=== PATIENT | female | born 1975 | race Caucasian/White ===

== ENCOUNTER 2016-11-26 11:12 | Outpatient (CLI) | payer OTHER | END 2016-11-26 20:31 | disposition home or self-care (01) | LOC: MLB 11:12 | PROVIDERS: ATTEND Family Medicine | DX: E78.5 Hyperlipidemia, unspecified (principal); M32.9 Systemic lupus erythematosus, unspecified; G89.29 Other chronic pain; M79.7 Fibromyalgia; K92.1 Melena; Z11.1 Encounter for screening for respiratory tuberculosis; Z11.59 Encounter for screening for other viral diseases; Z86.19 Personal history of other infectious and parasitic diseases; Z13.828 Encounter for screening for other musculoskeletal disorder; Z87.898 Personal history of other specified conditions ==

== ENCOUNTER 2016-12-05 11:37 | Outpatient (CLI) | payer OTHER ==
[2016-12-06 09:11] LABS: T4 (THYROXINE) 9.2 ug/dL (4.5-12.0)
== END 2016-12-05 19:59 | disposition home or self-care (01) ==
LOC: MLB 11:37
PROVIDERS: ATTEND Family Medicine
DX: Z11.1 Encounter for screening for respiratory tuberculosis (principal)
CPT/HCPCS: 36415; 84436; 84480; 86255; 86376; 87340

== ENCOUNTER 2017-02-06 10:04 | Outpatient (CLI) | payer OTHER | END 2017-02-06 21:30 | disposition home or self-care (01) | LOC: MLB 10:04 | DX: M32.9 Systemic lupus erythematosus, unspecified (principal) ==